=== PATIENT | female | born 1940 | race Caucasian/White ===

== ENCOUNTER 2017-01-07 08:14 | Day surgery (SDC) | payer MEDICARE ==
[2017-01-02 12:00] LABS: HEMATOCRIT 40.9 % (36.0-48.0); HEMOGLOBIN 13.7 g/dL (12.0-16.0)
[2017-01-02 12:25] LABS: A/G RATIO 1.3 (0.7-1.9); ALBUMIN 3.8 G/DL (3.5-5.0); ALKALINE PHOSPHATASE 60 U/L (45-117); CALCIUM, SERUM 8.9 MG/DL (8.5-10.4); CHLORIDE, SERUM 103 MMOL/L (96-112); CO2 (CARBON DIOXIDE) 27 MMOL/L (24-34); CREATININE 1.01 MG/DL (0.55-1.02); GFR AFRICAN AMERICAN 62 ML/MIN (>=60); GFR NON AFRICAN AMERICAN 54 ML/MIN (>=60); GLOBULIN 2.9 G/DL (2.5-4.1); POTASSIUM, SERUM 5.1 MMOL/L (3.5-5.3); SGOT(AST) 18 U/L (5-40); SGPT(ALT) 24 U/L (5-65); SODIUM, SERUM 137 MMOL/L (135-148); TOTAL BILIRUBIN 0.5 MG/DL (0-1.2); TOTAL PROTEIN 6.7 G/DL (6.0-8.5)
[2017-01-02 12:26] LABS: BUN (BLOOD UREA NITROGEN) 25 MG/DL (6-23); GLUCOSE, SERUM 70 MG/DL (60-99)
--- NOTE | ~2017-01-07 | OP ---
Record Of Operation [facility] [address] [place]. [address] NAME: AMY JUNE : 38 STATUS : REG [facility]#: [id number] AGE: 76 ADM/REG DATE : 01/07/17 MR#: [id number] REPORT SERV DATE: 01/07/17 DICTATED BY: MAUREEN BROUSSARD JR. DATE: 01/07/17 REPORT STATUS : Draft TRANSCRIBED BY: MODL DATE: 01/07/17 DATE OF PROCEDURE: REASON FOR SURGERY: This 76-year-old patient presents now with a biopsy-proven hormone favorable, but high-grade malignancy of the left breast. Her case had been presented at the weekly breast conference. She is now scheduled for breast preservation surgery. PREOPERATIVE DIAGNOSIS: Carcinoma, left breast. POSTOPERATIVE DIAGNOSIS: Carcinoma, left breast. SURGEON: Maureen Broussard M.D. SURGERY PERFORMED: [place] node localization, followed by left breast segmentectomy, and sentinel node resection. DESCRIPTION OF PROCEDURE: The patient was initially injected in the nuclear medicine facility. She was taken to the operating room and under general anesthesia, she was prepped and draped in the supine position in the usual sterile fashion. A curvilinear incision was made in the lower outer quadrant directly over the palpable mass. Dissection was carried into the fatty tissue and then a three-dimensional excision measuring 4 cm across was performed keeping this palpable mass center most within the specimen. It was removed and oriented for pathology. It was evident that there was an extension of the tumor into the subcutaneous tissue at the 9 o'clock surface. For this reason, an additional disk measuring 2 x 1 x 1.5 cm was taken from the subcutaneous fatty tissue extending from the incision medially to the 9 o'clock position. This was removed and oriented for pathology. The wound was irrigated and hemostasis was obtained. The wound was closed with two layers of Monocryl. Attention was then turned to the left axilla. With the help of the gamma probe, a very minimally active site was encountered. A small curvilinear incision was made and vertical dissection carried down to a faintly active, but localized site of activity. An excision was made of this very small lymph node with the surrounding fatty tissue allowed to remain with the specimen. Counts with the gamma probe are as outlined in the surgical log book. The wound was irrigated and hemostasis was obtained. The wound was closed with two layers of Monocryl. The patient tolerated the procedure well without complications. ESTIMATED BLOOD LOSS: Less than 10 mL. SPONGE COUNT: Correct. Record Of Operation [facility] [address] [place]. [id number] NAME: AMY JUNE : 38 STATUS : REG [facility] PAT#: [id number] AGE: 76 ADM/REG DATE : 01/07/17 MR#: [id number] REPORT SERV DATE: 01/07/17 DICTATED BY: MAUREEN BROUSSARD JR. DATE: 01/07/17 REPORT STATUS : Draft TRANSCRIBED BY: IRVIN DATE: 01/07/17 /IRVIN Maureen Broussard Jr., M.D. / [id number] CC: Maverick Munoz Jr., M.D. Donna Hobgood, M.D. [facility]
[~2017-01-07 08:14] MED LIST: AMB10 PO; ASAEC PO; B-125000 MCG PO; CALTRA600D PO; CARDCD240 PO; CARTIA XT180 MG/24 PO; FLONASE NAS; I20 PO; LEVOTHYROXIN100 MCG PO; LIPITOR20 PO; LORT7 PO; MULTIPLE VIT PO; MULTIVIT/MIN PO; NEUR400 PO; NEUR800 PO; NORCO1 TAB PO; OS500+D PO; PEPCID40 MG OR; PEPCID40 MG PO; PREV30 PO; PRILO PO; RYTHMOL150 MG PO; SYN125 PO; TRAVATAN Z0.004 % OPH
== END 2017-01-07 15:37 | disposition home or self-care (01) ==
LOC: SDC 08:14
PROVIDERS: Surgery Surgical Oncology
PROC: 07B60ZZ Excision of Left Axillary Lymphatic, Open Approach (ICD-10-PCS; 2017-01-07)
PROC: 0HBU0ZZ Excision of Left Breast, Open Approach (ICD-10-PCS; principal; 2017-01-07 10:15)
DX: C50.512 Malignant neoplasm of lower-outer quadrant of left female breast (principal); G57.93 Unspecified mononeuropathy of bilateral lower limbs; H40.9 Unspecified glaucoma; M19.90 Unspecified osteoarthritis, unspecified site; M81.0 Age-related osteoporosis without current pathological fracture; K22.70 Barrett's esophagus without dysplasia; K21.9 Gastro-esophageal reflux disease without esophagitis; E03.9 Hypothyroidism, unspecified; Z88.6 Allergy status to analgesic agent; Z88.2 Allergy status to sulfonamides; Z79.51 Long term (current) use of inhaled steroids; Z79.899 Other long term (current) drug therapy; Z96.641 Presence of right artificial hip joint; Z90.49 Acquired absence of other specified parts of digestive tract; Z90.89 Acquired absence of other organs; Z96.1 Presence of intraocular lens; Z98.41 Cataract extraction status, right eye; Z98.42 Cataract extraction status, left eye; Z90.711 Acquired absence of uterus with remaining cervical stump; Z90.721 Acquired absence of ovaries, unilateral; Z98.890 Other specified postprocedural states; Z85.850 Personal history of malignant neoplasm of thyroid
CPT/HCPCS: 71020; 78195; 80053; 85014; 85018; 88305; 88307; 88331; 88341; 88342; 88360; 93005; A9541; J0690; J2250; J2405; J2710; J3010